=== PATIENT | male | born 1950 | race Caucasian/White ===

== ENCOUNTER 2016-05-27 11:09 | Emergency (ER) | payer OTHER ==
[2016-05-27 12:26] VITALS: BP 154/72
--- NOTE | 2016-05-27 12:45 | UC ---
Respiratory Complaint HPI - HPI Summary HPI Summary: OVER A WEEK OF COUGH, CHEST CONGESTION AND PLUGGED EARS. DENIES FEVER AT HOME ALTHOUGH TEMP IS A BIT ELEVATED HERE. DENIES SOB. HAD A ST INITIALLY BUT THAT HAS RESOLVED. FEELS HE IS NOT IMPROVING HE SHOULD BE. - History of Current Complaint Chief Complaint: UCRespiratory Stated Complaint: HEAD CONGESTION COUGH Time Seen by Provider: 05/27/16 12:33 Hx Obtained From: Patient Onset/Duration: Gradual Onset, Lasting Weeks, Still Present Timing: Constant Severity Initially: Moderate Severity Currently: Moderate Pain Intensity: 0 Pain Scale Used: 0-10 Numeric Character: Cough: Productive Aggravating Factors: Deep Breaths Alleviating Factors: Nothing Associated Signs And Symptoms: Positive: Wheezing, Nasal Congestion, Hoarseness. Negative: Dyspnea, Fever, Chills, Pleuritic Chest Pain, Hemoptysis , Dizziness, Calf Pain, Calf Swelling, Edema, URI, Sinus Discomfort - Allergies/Home Medications Allergies/Adverse Reactions: Allergies Allergy/AdvReac Type Severity Reaction Status Date / Time No Known Drug Allergy Allergy none Verified 05/27/16 12:22 Home Medications: Home Medications Dextromethorphan-Phenylephrine [Daytime Cold & Flu Relief 10-5-325 mg] [History] [id number] [Nyquil Severe Cold/Flu 5-6.25-10-325 mg/15Ml] 05/27/16 [History] guaiFENesin ER TAB [Mucinex*] 05/27/16 [History] PMH/Surg Hx/FS Hx/Imm Hx Previously Healthy: Yes - Surgical History Surgical History: None - Family History Known Family History: Positive: Unknown - Patient is adopted - Social History Alcohol Use: Occasionally Substance Use Type: None Smoking Status (MU): Light Every Day Tobacco Smoker Type: Cigars Amount Used/How Often: 3 cigarillos/day Household Exposure Type: Cigars Review of Systems Constitutional: Fatigue ENT: Sore Throat, Ear Ache, Nasal Discharge Respiratory: Cough Cardiovascular: Negative Gastrointestinal: Negative All Other Systems Reviewed And Are Negative: Yes Physical Exam Triage Information Reviewed: Yes Appearance: Well-Appearing, No Pain Distress, Well-Nourished Vital Signs: Initial Vital Signs Temp 100 F 05/27/16 12:23 Pulse 88 05/27/16 12:23 Resp 16 01/03/17 12:23 BP 154/72 05/27/16 12:23 Pulse Ox 96 05/27/16 12:23 Vital Signs Reviewed: Yes Eyes: Positive: Conjunctiva Clear ENT: Positive: Hearing grossly normal, Pharynx normal, TMs normal Neck: Positive: Supple, Nontender, No Lymphadenopathy Respiratory: Positive: No respiratory distress, No accessory muscle use, Rhonchi - BILATERAL BASES R>L Cardiovascular Exam: Normal Abdomen Description: Positive: Soft Musculoskeletal: Positive: No Edema Neurological: Positive: Alert Psychological: Positive: Age Appropriate Behavior Skin: Negative: rashes UC Diagnostic Evaluation - Laboratory O2 Sat by Pulse Oximetry: 96 Respiratory Course/Dx - Course Course Of Treatment: BILATERAL EARS SUCCESSFULLY IRRIGATED BY RN - Differential Dx/Diagnosis Provider Diagnoses: 1. ACUTE BRONCHITIS. 2. CERUMEN IMPACTION BILATERAL Discharge - Discharge Plan Condition: Stable Disposition: HOME Prescriptions: Albuterol HFA INHALER* [Ventolin HFA Inhaler*] 2 puff INH Q4H PRN #1 mdi PRN Reason: Shortness Of Breath Azithromycin [Azithromycin 500 MG TAB] 500 mg PO DAILY #5 tab Spacer/Aerosol-Holding Chamber [Aerochamber Plus] 1 mis XX Q4H PRN #1 unit PRN Reason: Shortness Of Breath predniSONE TAB* [Deltasone TAB*] 40 mg PO DAILY #6 tab Patient Education Materials: Acute Bronchitis (ED) Referrals: Gamal Gibson MD [Medical Doctor] - If Needed
== END 2016-05-27 13:23 | disposition home or self-care (01) ==
LOC: UCEAST 11:09
DX: J20.9 Acute bronchitis, unspecified (principal); H61.23 Impacted cerumen, bilateral; F17.210 Nicotine dependence, cigarettes, uncomplicated
CPT/HCPCS: 99213; G0463